=== PATIENT | male | born 1975 | race Caucasian/White ===

== ENCOUNTER 2017-06-09 05:22 | Emergency (ER) | payer OTHER ==
[~2017-06-09] VITALS: Ht 190.5 cm; Wt 90.7 kg
[2017-06-09 05:25] VITALS: BP_SYST 137
[2017-06-09] MEDS ORDERED: IBUPROFEN 800 MG TABLET PO ONE (06:00)
[2017-06-09 06:06] VITALS: BP_SYST 134
== END 2017-06-09 06:06 | disposition home or self-care (01) ==
LOC: SED 05:22
DX: S80.812A Abrasion, left lower leg, initial encounter (principal); S80.811A Abrasion, right lower leg, initial encounter; V49.9XXA Car occupant (driver) (passenger) injured in unspecified traffic accident, initial encounter; Y93.89 Activity, other specified; Y92.410 Unspecified street and highway as the place of occurrence of the external cause; Y99.8 Other external cause status
CPT/HCPCS: 99283